=== PATIENT | female | born 1990 | race African-American/Black ===

== ENCOUNTER 2017-03-10 20:07 | Emergency (ER) | payer OTHER ==
[~2017-03-10] VITALS: Ht 177.8 cm; Wt 102.2 kg
[~2017-03-10 20:07] MED LIST: ALTATAB; BUPR-197 PO; TEMA15 PO; [UNRECOGNIZED DRUG - CODE] TOPICAL
[2017-03-10 20:10] VITALS: BP 123/76; PULSE 74; RESP 16; TEMP 98; O2SAT 99
[2017-03-10] MEDS ORDERED: ROBA500T PO (21:19)
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
== END 2017-03-10 21:32 | disposition home or self-care (01) ==
LOC: PHEFT 20:07
DX: M62.838 Other muscle spasm (principal); S80.02XA Contusion of left knee, initial encounter; S80.01XA Contusion of right knee, initial encounter; V89.2XXA Person injured in unspecified motor-vehicle accident, traffic, initial encounter
CPT/HCPCS: 99283

== ENCOUNTER 2017-07-05 15:39 | Emergency (ER) | payer OTHER ==
[~2017-07-05] VITALS: Ht 175.3 cm; Wt 100.0 kg
[~2017-07-05 15:39] MED LIST changes: -ALTATAB; -BUPR-197 PO; +ROBA500T PO; -TEMA15 PO; -[UNRECOGNIZED DRUG - CODE] TOPICAL
[2017-07-05 16:24] VITALS: BP 184/111; PULSE 87; RESP 20; TEMP 98.3; O2SAT 98
[2017-07-05 16:32] VITALS: BP 184/114; PULSE 89; RESP 20; TEMP 98.2; O2SAT 98
[2017-07-05] MEDS ORDERED: LORA-474 PO (16:45)
[2017-07-05] MEDS ORDERED: AMPH1TAB29 PO (16:45)
[2017-07-05] MEDS ORDERED: WELL200T PO (16:45)
[2017-07-05 17:20] LABS: AUTOMATED NEUTROPHIL # 2.6 TH/MM3 (1.8-7.7); BASOPHIL % 0.7 % (0.0-2.0); EOSINOPHIL % 0.4 % (0.0-4.0); HEMATOCRIT 35.9 % (35.0-46.0); HEMOGLOBIN 12.5 GM/DL (11.6-15.3); LYMPH % 28.6 % (9.0-44.0); LYMPHOCYTE # 1.3 TH/MM3 (1.0-4.8); MEAN CELL VOLUME 83.1 FL (80.0-100.0); MEAN CORPUSCULAR HGB CONC 34.9 % (32.0-36.0); MEAN PLATELET VOLUME 7.8 FL (7.0-11.0); MONO % 13.6 % (0.0-8.0); MONOCYTE # 0.6 TH/MM3 (0-0.9); NEUT % 56.7 % (16.0-70.0); PLATELET COUNT 223 TH/MM3 (150-450); RED BLOOD COUNT 4.32 MIL/MM3 (4.00-5.30); RED CELL DISTRIBUTION WIDTH 14.3 % (11.6-17.2); WHITE BLOOD COUNT 4.7 TH/MM3 (4.0-11.0)
[2017-07-05 17:39] LABS: ALBUMIN 3.8 GM/DL (3.4-5.0); ALT (GPT) 31 U/L (10-53); AST (GOT) 35 U/L (15-37); BLOOD UREA NITROGEN 11 MG/DL (7-18); CALCIUM 8.8 MG/DL (8.5-10.1); CHLORIDE 108 MEQ/L (98-107); CREATININE 1.15 MG/DL (0.50-1.00); GLOMERULAR FILTRATION RATE 70 ML/MIN (>89); GLUCOSE,RANDOM 68 MG/DL (74-106); SODIUM (NA) 142 MEQ/L (136-145)
[2017-07-05 17:42] LABS: ACETAMINOPHEN LESS THAN 2.0 MCG/ML (10.0-30.0); ALKALINE PHOSPHATASE 56 U/L (45-117); TOTAL BILIRUBIN ADULT 0.4 MG/DL (0.2-1.0); TOTAL PROTEIN 6.9 GM/DL (6.4-8.2)
[2017-07-05 17:48] VITALS: BP 134/97; PULSE 94; RESP 20; TEMP 98.3; O2SAT 100
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
[2017-07-05] MEDS ORDERED: diphenhydrAMINE HCL 50 MG CAP PO ONE (20:30)
[2017-07-06 10:07] VITALS: BP 154/81; PULSE 92; RESP 18
== END 2017-07-06 14:55 ==
LOC: NEPD 15:39 → NEPJ 07-06 14:55
DX: T42.4X1A Poisoning by benzodiazepines, accidental (unintentional), initial encounter (principal); S61.512A Laceration without foreign body of left wrist, initial encounter; S61.511A Laceration without foreign body of right wrist, initial encounter; F31.9 Bipolar disorder, unspecified; X78.8XXA Intentional self-harm by other sharp object, initial encounter; Z79.899 Other long term (current) drug therapy; Z88.6 Allergy status to analgesic agent; Z88.8 Allergy status to other drugs, medicaments and biological substances
CPT/HCPCS: 80053; 80307; 84703; 85025; 99285; Q0163